=== PATIENT | female | born 1935 | race Caucasian/White ===

== ENCOUNTER 2019-01-29 20:03 | Observation (INO) ==
--- NOTE | 2019-01-29 20:13 | Emergency Department Note ---
Disposition Clinical Impression: Dizziness, Cavitating mass of lung Cerebrovascular accident Qualifiers: CVA mechanism: unspecified Qualified Code(s): I63.9 - Cerebral infarction, unspecified Disposition: Admitted As Inpatient Condition: Fair Time of Disposition: 01:00 General Adult HPI - General Stated complaint: Dehydration Time Seen by Provider: 01/29/19 20:11 - Related Data Home Medications Medication Instructions Recorded Confirmed Diltiazem CD (24hr) [Cardizem CD] 180 mg PO DAILY 01/29/19 01/29/19 Mirtazapine [Remeron] 45 mg PO HS 01/29/19 01/29/19 Simvastatin [Zocor] 10 mg PO DAILY 01/29/19 01/29/19 Allergies Allergy/AdvReac Type Severity Reaction Status Date / Time aspirin [ASA] AdvReac Gastrointestinal Verified 10/20/18 13:13 Upset Past Medical History - Past Medical History Medical history: Reports: hyperlipidemia, hypertension - Social History Smoking Status: Current every day smoker Smokeless Tobacco Status: No Alcohol use: Reports: none Drug use: Reports: none Course Vital Signs Temperature 98.2 F 01/29/19 20:10 Pulse Rate 78 01/29/19 20:10 Respiratory Rate 14 01/29/19 20:10 Blood Pressure 140/69 01/29/19 20:10 O2 Sat by Pulse Oximetry 96 01/29/19 20:10 Temperature 98.2 F 01/29/19 20:10 Pulse Rate 80 01/30/19 00:49 Respiratory Rate 16 01/30/19 00:27 Blood Pressure 135/73 01/30/19 00:49 O2 Sat by Pulse Oximetry 96 01/30/19 00:27 Oxygen Delivery Oxygen Delivery Room Air Medical Decision Making - Lab Data Result diagrams: 01/29/19 21:28 01/29/19 21:28 Lab Results 01/29/19 01/29/19 01/29/19 Range/Units 21:15 21:28 21:28 WBC 13.3 H (4.3-11.1) K/mcL RBC 4.50 (3.82-4.97) M/mcL Hgb 13.5 (11.5-15.4) g/dL Hct 42.1 (35.3-44.9) % MCV 93.6 (83.0-100.0) fL MCH 30.0 (28.0-33.3) pg MCHC 32.1 (31.6-35.5) g/dL RDW 13.2 (11.5-14.5) % Plt Count 269 (140-400) K/mcL MPV 10.0 (9.4-12.4) fL Immature Gran % 0.6 (0-4) % Seg Neutrophils % 81.9 % Lymphocytes % 9.4 % Monocytes % 6.2 % Eosinophils % 1.4 % Basophils % 0.5 % Neutrophils # 10.9 H (1.6-8.9) K/mcL Lymphocytes # 1.3 (0.6-4.6) K/mcL Monocytes # 0.8 (0.0-1.3) K/mcL Eosinophils # 0.2 (0.0-0.6) K/mcL Basophils # 0.1 (0.0-0.2) K/mcL Sodium 142 (136-145) mEq/L Potassium 3.9 (3.5-5.1) mEq/L Chloride 106 (98-107) mEq/L Carbon Dioxide 24 (23-29) mEq/L BUN 13 (8-23) mg/dL Creatinine 0.52 L (0.60-1.20) mg/dL Est GFR ( Amer) > 60 (> 60) Est GFR (Non-Af Amer) > 60 (> 60) BUN/Creatinine Ratio 25 (6-26) Glucose 115 H (70-105) mg/dL Calculated Osmolality 295 (280-300) Calcium 9.2 (8.6-10.3) mg/dL Total Bilirubin 0.2 L (0.3-1.0) mg/dL AST 17 (13-39) Units/L ALT 9 (7-52) Units/L Alkaline Phosphatase 71 (34-104) Units/L Troponin I < 0.03 (< 0.04) ng/mL Serum Total Protein 6.7 (6.4-8.9) g/dL Albumin 4.2 (3.5-5.7) g/dL Globulin 2.5 (2.4-3.5) g/dL Albumin/Globulin Ratio 1.7 (1.1-2.2) Urine Color Yellow (Yellow) Urine Clarity Clear (Clear) Urine pH 7.0 (5.0-8.0) pH Units Ur Specific [place] 1.010 (1.010-1.025) Urine Protein Negative (Neg-Trace) mg/dL Urine Glucose (UA) Normal (Normal) mg/dL Urine Ketones Negative (Negative) mg/dL Urine Blood Negative (Negative) Urine Nitrite Negative (Negative) Urine Bilirubin Negative (Negative) Urine Urobilinogen Normal (Normal) mg/dL Ur Leukocyte Esterase Negative (Negative) Ur Culture Indicated? NO (NO) Attestation Statement - Attestation Attestation: I saw and evaluated the patient and and reviewed the resident's note/PA note/[employer]LL[employer] STAY FUSER TENDER note, and I agree with the findings and plan. I personally supervised and was present for the nascimento/critical portions of any procedures. The medical decision- making was reviewed with the WINCHER/PA/Advanced Practice Nurse/Resident Physician. I agree with the documented findings, disposition and treatment plan as described except to the extent set forth below. I did see the patient immediately upon arrival and also spoke with the paramedics and she presents from home where she lives alone with complaint of vertiginous dizziness which has been going on for several weeks and she has been worsening. She has been here in the past I did review the previous record. She denies any numbness or weakness of the extremities except that she does have 2 weeks of numbness of both feet. She denies any slurred speech, facial droop or confusion. No pain in the head, neck, chest, abdomen or back. No vomiting or diarrhea. No blood in the urine or stool. Social history: Smoker, no a lcohol or drugs
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
[2019-01-29 21:24] LABS: Bilirubin,Urine Negative (Negative); Blood,Urine Negative (Negative); Clarity,Urine Clear (Clear); Color,Urine Yellow (Yellow); Glucose,Urine (UA) Normal (Normal); Ketones,Urine Negative (Negative); Leukocyte Esterase,Urine Negative (Negative); Nitrite,Urine Negative (Negative); Protein,Urine Negative (Neg-Trace); Urobilinogen,Urine Normal (Normal)
[2019-01-29 21:38] LABS: Basophils # 0.1 K/mcL (0.0-0.2); Basophils % 0.5 %; Eosinophils # 0.2 K/mcL (0.0-0.6); Eosinophils % 1.4 %; Hematocrit 42.1 % (35.3-44.9); Hemoglobin 13.5 g/dL (11.5-15.4); Immature Granulocytes % 0.6 % (0-4); Lymphocytes # 1.3 K/mcL (0.6-4.6); Lymphocytes % 9.4 %; Mean Corpuscular HGB Conc 32.1 g/dL (31.6-35.5); Mean Corpuscular Volume 93.6 fL (83.0-100.0); Monocytes # 0.8 K/mcL (0.0-1.3); Monocytes % 6.2 %; Neutrophils # 10.9 K/mcL (1.6-8.9); Platelet Count 269 K/mcL (140-400); Red Cell Distribution Width 13.2 % (11.5-14.5); Segmented Neutrophils % 81.9 %; White Blood Count 13.3 K/mcL (4.3-11.1)
[2019-01-29 22:00] LABS: Alanine Aminotransferase 9 Units/L (7-52); Albumin 4.2 g/dL (3.5-5.7); Albumin/Globulin Ratio 1.7 (1.1-2.2); Alkaline Phosphatase 71 Units/L (34-104); Aspartate Amino Transferase 17 Units/L (13-39); BUN/Creatinine Ratio 25 (6-26); Bilirubin,Total 0.2 mg/dL (0.3-1.0); Blood Urea Nitrogen 13 mg/dL (8-23); Calcium 9.2 mg/dL (8.6-10.3); Carbon Dioxide 24 mEq/L (23-29); Chloride 106 mEq/L (98-107); Globulin 2.5 g/dL (2.4-3.5); Glucose 115 mg/dL (70-105); Osmolality,Calculated 295 (280-300); Potassium 3.9 mEq/L (3.5-5.1); Sodium 142 mEq/L (136-145); Total Protein 6.7 g/dL (6.4-8.9); Troponin I < 0.03 ng/mL (< 0.04); eGFR For African Americans > 60 (> 60); eGFR For Non-African Americans > 60 (> 60)
[2019-01-29] MEDS ORDERED: Isovue-370 500 ML BOTTLE IVP ONE (22:22)
--- NOTE | 2019-01-30 00:41 | Internal Med History&Physical ---
<Kayla James L - Last Filed: 01/30/19 05:06> Date of Encounter: 01/30/19 Time of Encounter: 12:50 Internal Medicine - H&P: HPI Chief complaint: dizziness History of present illness: Ms. Huang is a 83 year old female with pmhx of HTN, and HLD, presents with c/o 2 month history of intermittent dizziness. Patient states she has been getting dizzy and lightheaded daily in the mornings shortly after she takes her blood pressure medications. Patient states she has had recent unintended weight loss of close to 50 pounds and voices her concerns of current BP medication dosage. Patient states although dizziness occurs after morning medications she continues to take her blood pressure medications as prescribed. The dizziness and lightheadedness has been worsening in the past couple of weeks. The dizziness occurs while seated and standing but is not associated with chest pain, palpitations, diaphoresis, blurred vision or falls. Patient denies any recent sick contacts and states this has not happened before. Patient admits to recent decreased hearing and pain in her left ear and numbness and tingling in her feet b/l that began within the last 2 months. Yesterday patient was seated and got up to get her phone. Upon standing she became very dizzy and was unable to continue walking she immediately had to sit down. she eventually was able to get to the phone to call her brother to come over. On her brothers arrival to her house they called EMS as her symptoms had not resolved. Patient also admits to decreased appetite with poor oral intake recently. Past Med Surg Social Fam HX - Past Medical History Medical history: hyperlipidemia, hypertension, osteoporosis Psychiatric history: no psych history - Past Surgical History Surgical History: orthopedic, other (metal palte in L distal radius and R second DIP) - Social History Smoking Status: Current every day smoker Smokeless Tobacco Status: No Alcohol use: none Drug use: none Internal Medicine - H&P: Meds Diltiazem CD (24hr) [Cardizem CD] 180 mg PO DAILY 01/29/19 [History] Mirtazapine [Remeron] 45 mg PO HS 01/29/19 [History] Simvastatin [Zocor] 10 mg PO DAILY 01/29/19 [History] Allergy/AdvReac Type Severity Reaction Status Date / Time aspirin [ASA] AdvReac Gastrointestinal Verified 10/20/18 13:13 Upset All Systems PM: A 10-system review of systems was performed and is negative for pertinent findings except as documented above in the HPI. Review of systems: Constitutional: Denies Fever, Chills, Headache, Respiratory: Denies Shortness of breath, hemoptysis, Dyspnea at rest, or activity admits to Chronic cough Cardiovascular: Denies Chest pain, Syncope, Peripheral edema , palpitations Gastrointestinal: Denies hematochezia, Abdominal pain, nausea, vomiting Genitourinary: Denies Painful urination, hematuria, urinary retention Endocrine: admits to unintentional Significant weight changes Skin: Denies rashes, or unexplained bruising - Constitutional Vitals: Temp Pulse Resp BP Pulse Ox 98.2 F 88 16 125/64 96 01/29/19 20:10 01/30/19 00:27 01/30/19 00:27 01/30/19 00:27 01/30/19 00:27 Exam: Gen: alert/oriented, no acute distress. speaks clearly without signs of dysarthria. Head: atraumatic, normocephalic. ENT: EOMI, lateral nystagmus with R gaze, JOSELUIS, no oropharyngeal erythema, mucous membranes moist, Neck: No thyromegaly appreciated. Neck supple no cervical lymphadenopathy. paraspinal cervical muscle tension Resp: pectus excavatum, decreased breath sounds throughout, mild rhonchi in RLL,no wheezing, or rhales. CV: RRR, Normal S1 and S2. No murmur, gallops, or rubs. GI/Abdominal exam: bowel sounds throughout, soft, non-tender, non- distended; no hepatosplenomegaly Skin: intact; no rashes, lesions, or bruising. Ext: No cyanosis or edema. thoracic scoliosis, with mild tenderness of spinous process in thoracic vertebrase, pulses +2/4 bilaterally UE and LE. Neuro: mild lower left sided facial droop, CN II-XII intact, with notable hearing loss in L ear, sensation intact in UE b/l. decreased sensation on dorsal surface of L foot, normal sensation of R LE; strength 5/5 in LE b/l, 3/5 L UE and 5/5 R UE; DTR +2/4 UE and LE; cooperative with exam. Internal Med - H&P Results - Labs CBC & Chem 7: 01/29/19 21:28 01/29/19 21:28 Labs: Short CBC 01/29/19 Range/Units 21:28 WBC 13.3 H (4.3-11.1) K/mcL Hgb 13.5 (11.5-15.4) g/dL Hct 42.1 (35.3-44.9) % Plt Count 269 (140-400) K/mcL Neutrophils # 10.9 H (1.6-8.9) K/mcL BMP 01/29/19 21:28 Sodium 142 Potassium 3.9 Chloride 106 Carbon Dioxide 24 BUN 13 Creatinine 0.52 L Glucose 115 H Calcium 9.2 Cardiac Enzymes 01/29/19 Range/Units 21:28 Troponin I < 0.03 (< 0.04) ng/mL Liver Function 01/29/19 Range/Units 21:28 Total Bilirubin 0.2 L (0.3-1.0) mg/dL AST 17 (13-39) Units/L ALT 9 (7-52) Units/L Alkaline Phosphatase 71 (34-104) Units/L Albumin 4.2 (3.5-5.7) g/dL Urine 01/29/19 Range/Units 21:15 Urine Color Yellow (Yellow) Urine Clarity Clear (Clear) Urine pH 7.0 (5.0-8.0) pH Units Ur Specific [place] 1.010 (1.010-1.025) Urine Protein Negative (Neg-Trace) mg/dL Urine Glucose (UA) Normal (Normal) mg/dL - Impressions ITS Impressions Chest X-Ray 01/29/19 20:27 IMPRESSION: Suspicious nodular opacity at the left lung base. Further evaluation with chest CT is recommended at this time. D/ / Hardik Ortiz MD / Hardik Ortiz MD Interpreting Provider: Hardik Ortiz MD Head CT 01/29/19 20:27 IMPRESSION: No acute intracranial abnormality. D/ / Lawrence Thorpe MD / Lawrence Thorpe MD Interpreting Provider: Lawrence Thorpe MD Chest CT 01/29/19 22:22 IMPRESSION: Single large or 2 adjacent cavitary nodule in the left lower lobe similar in appearance compared to the prior CT abdomen and pelvis. Infectious, inflammatory, and neoplastic etiologies are all considered. If indicated, a PET-CT should be considered for complete characterization. No enlarged mediastinal lymph nodes by size criteria. Emphysematous change. D/ / Sudeep Zamora / Sudeep Zamora Interpreting Provider: Sudeep Zamora - Assessment and Plan (1) Dizziness Current Visit: Yes Status: Acute Assessment and plan: Patient is a 83-year-old female with past medical history of hypertension and hyperlipidemia. Patient presents with increased symptoms of dizziness worsening in the past couple weeks. Patient has admitted to decreased appetite, unilateral pain and hearing loss of left ear, numbness and tingling in her feet bilaterally. On presentation in the ED patient had CT was negative for acute intracranial process. Due to clinical presentation and physical exam concerns for Dizziness secondary to CVA versus BPPV versus Meniere's versus orthostatic h ypotension. Plan; - we will obtain MRI in a.m. for stroke evaluation. Patient does have hardware in her left arm and right finger evaluate if she is a candidate for MRI. If patient is not a candidate for MRI obtained CTA of brain. - Carotid duplex - Echo - Telemetry, continuous pulse ox - Continue statin (2) Orthostatic hypotension Current Visit: Yes Status: Acute Assessment and plan: Due to concerns for orthostatic hypotension, orthostatic blood pressures were repeated. Orthostatic hypotension is diagnosed when, within 2-5 minutes of quiet standing (after a 5 minute period of supine rest), one or both of the following is present: at least 20 mmHg fall in systolic pressure, or at least 10 mmHg fall and diastolic pressure. Repeat orthostatic blood pressures in this patient: Lying down 135/73 Sitting 138/80 standing 143/77 Plan: - Patient did not have a 10 mm fall in systolic or diastolic pressure with the change in position. - There is still currently concerns for dehydration due to poor oral intake. She is receiving 1 L of normal saline - We will continue to monitor. (3) Cavitating mass of lung Current Visit: Yes Status: Acute Assessment and plan: Patient has a long-standing history of cigarette smoking and recent unintended weight loss. Recent Chest x-ray shows: Suspicious nodular opacity at the left lung base. Further evaluation with chest CT is recommended at this time. Patient did receive a chest CT which showed: cavitary nodule in the left lower lobe, Infectious, inflammatory, and neoplastic etiologies are all considered. If indicated, a PET-CT should be considered for complete characterization. Plan; - We will consult pulmonology for further recommendations (4) Leukocytosis Current Visit: Yes Status: Acute Assessment and plan: Currently patient has neutrophilic leukocytosis, etiology unknown. Patient has been afebrile and arrival. Patient currently denies recent sickness or sick contacts. Plan: - We will continue to monitor for any signs of infection. Qualifiers: Qualified Code(s): D72.829 - Elevated white blood cell count, unspecified (5) Hypertension Current Visit: Yes Status: Acute Assessment and plan: As patient is not presenting with acute signs of stroke we will continue current antihypertensives. Plan: - Cardizem CD 180 mg. Qualifiers: Qualified Code(s): I10 - Essential (primary) hypertension (6) DVT prophylaxis Current Visit: Yes Status: Acute Assessment and plan: SCD - Time Spent With Patient Total time spent is greater than 50% in coordination of care (as documented) at patient's floor/unit and/or counseling patient: <Quinton Medina - Last Filed: 01/30/19 07:00> Date of Encounter: 01/30/19 Internal Medicine - H&P: HPI History of present illness: Ms. Huang is a 83 year old female All Systems PM: A 10-system review of systems was performed and is negative for pertinent findings except as documented above in the HPI. - Constitutional Vitals: Temp Pulse Resp BP Pulse Ox 98.2 F 80 16 135/73 96 01/29/19 20:10 01/30/19 00:49 01/30/19 00:27 01/30/19 00:49 01/30/19 00:27 Internal Med - H&P Results - Labs CBC & Chem 7: 01/30/19 04:01 01/30/19 04:01 Labs: Short CBC 01/29/19 Range/Units 21:28 WBC 13.3 H (4.3-11.1) K/mcL Hgb 13.5 (11.5-15.4) g/dL Hct 42.1 (35.3-44.9) % Plt Count 269 (140-400) K/mcL Neutrophils # 10.9 H (1.6-8.9) K/mcL BMP 01/29/19 21:28 Sodium 142 Potassium 3.9 Chloride 106 Carbon Dioxide 24 BUN 13 Creatinine 0.52 L Glucose 115 H Calcium 9.2 Cardiac Enzymes 01/29/19 Range/Units 21:28 Troponin I < 0.03 (< 0.04) ng/mL Liver Function 01/29/19 Range/Units 21:28 Total Bilirubin 0.2 L (0.3-1.0) mg/dL AST 17 (13-39) Units/L ALT 9 (7-52) Units/L Alkaline Phosphatase 71 (34-104) Units/L Albumin 4.2 (3.5-5.7) g/dL Urine 01/29/19 Range/Units 21:15 Urine Color Yellow (Yellow) Urine Clarity Clear (Clear) Urine pH 7.0 (5.0-8.0) pH Units Ur Specific [place] 1.010 (1.010-1.025) Urine Protein Negative (Neg-Trace) mg/dL Urine Glucose (UA) Normal (Normal) mg/dL - Impressions ITS Impressions Chest X-Ray 01/29/19 20:27 IMPRESSION: Suspicious nodular opacity at the left lung base. Further evaluation with chest CT is recommended at this time. D/ / Hardik Ortiz MD / Hardik Ortiz MD Interpreting Provider: Hardik Ortiz MD Head CT 01/29/19 20:27 IMPRESSION: No acute intracranial abnormality. D/ / Lawrence Thorpe MD / Lawrence Thorpe MD Interpreting Provider: Lawrence Thorpe MD Chest CT 01/29/19 22:22 IMPRESSION: Single large or 2 adjacent cavitary nodule in the left lower lobe similar in appearance compared to the prior CT abdomen and pelvis. Infectious, inflammatory, and neoplastic etiologies are all considered. If indicated, a PET-CT should be considered for complete characterization. No enlarged mediastinal lymph nodes by size criteria. Emphysematous change. D/ / Sudeep Zamora / Sudeep Zamora Interpreting Provider: Sudeep Zamora - Time Spent With Patient Total time spent is greater than 50% in coordination of care (as documented) at patient's floor/unit and/or counseling patient: - Attending Attestation I performed a history and physical examination of the patient and discussed their management with the resident. I reviewed the resident's note and agree with the documented plan of care. Patient is a 82-year-old female with a past medical history of hypertension, hyperlipidemia, tobacco use and history of GI bleed who presented to the ED due to concerns for dizziness and dehydration. She reports of a 1-2 month history of symptoms of dizziness typically occurring when rising but has been also occurring while seated as well. Denies any other triggers such as head turning or tinnitus. She does report progressive ear loss involving the left ear. Also reports diminished sensation bilaterally in both feet. Today she had a significant episode of her vertigo associated with nausea which was worse than usual and became concerned. Was noted to have orthostatic hypotension based on orthostatic vitals obtained by EMS. On initial assessment in the ED, mild left- sided facial drooping was noted that the patient was unaware of. Last known well is greater than a week ago. She denies any preceding chest pain, palpitations, or dyspnea prior to the dizziness. Denies recent illness, med changes, fevers, chills, vision changes, abdominal pain, vomiting, diarrhea, constipation, weakness, or edema. Due to concern for CVA, CT scan of the head was performed which showed no acute intracranial abnormality. On physical examination patient was neurologically intact aside from subtle left-sided facial droop. Laboratory workup notable for a mild leukocytosis of 13.3. UA was negative. Remainder of her labs are normal. Due to abnormal findings on chest x-ray a CT scan was obtained which showed a large cavitary nodule in LLL similar to prior appearance (infectious, inflammatory, or malignant). Patient does have a chronic smoking history stating that she has been smoking since she was 10 years old she also recently reported a 70 pound unintentional weight loss over the past 18 months. Will admit patient for stroke workup. Echocardiogram. Ideally, would like to obtain a MRI of the brain. Patient does report some hardware in her left distal upper extremity and in the right hand; unclear if it is MRI compatible. If not, consider CTA of the head and neck for further evaluation of a possible posterior circulatory stroke. Consider neurology consult. We will obtain a pulmonary consult for further evaluation of patients left lower lobe lesion given her history and risk factors.
[2019-01-30] MEDS ORDERED: Naloxone 0.4 MG/ML INJ IVP PRN (01:50)
[2019-01-30] MEDS: 0.9 % Sodium Chloride 1,000 ML IVC SCH ×2 (03:28→12:38)
[2019-01-30] MEDS ORDERED: Aspirin Enteric Coated 81 MG Tablet PO SCH (05:00)
[2019-01-30 05:27] LABS: Basophils # 0.1 K/mcL (0.0-0.2); Basophils % 0.6 %; Eosinophils # 0.1 K/mcL (0.0-0.6); Eosinophils % 0.7 %; Hemoglobin 12.8 g/dL (11.5-15.4); Immature Granulocytes % 0.3 % (0-4); Lymphocytes # 1.4 K/mcL (0.6-4.6); Lymphocytes % 14.2 %; Mean Corpuscular Volume 93.9 fL (83.0-100.0); Mean Platelet Volume 10.4 fL (9.4-12.4); Monocytes # 0.8 K/mcL (0.0-1.3); Monocytes % 7.6 %; Neutrophils # 7.6 K/mcL (1.6-8.9); Platelet Count 252 K/mcL (140-400); Red Blood Count 4.26 M/mcL (3.82-4.97); Red Cell Distribution Width 13.2 % (11.5-14.5); Segmented Neutrophils % 76.6 %; White Blood Count 9.9 K/mcL (4.3-11.1)
[2019-01-30 05:49] LABS: BUN/Creatinine Ratio 19 (6-26); Blood Urea Nitrogen 8 mg/dL (8-23); Calcium 9.1 mg/dL (8.6-10.3); Carbon Dioxide 26 mEq/L (23-29); Chloride 105 mEq/L (98-107); Chol/HDL Ratio 2.2 (0-4.9); Cholesterol 132 mg/dL (< 200); Glucose 100 mg/dL (70-105); HDL Cholesterol 59 mg/dL (40-59); LDL Cholesterol,Calculated 64 mg/dL (0-99); Magnesium 1.9 mg/dL (1.6-2.6); Osmolality,Calculated 290 (280-300); Potassium 3.6 mEq/L (3.5-5.1); Sodium 141 mEq/L (136-145); Triglycerides 43 mg/dL (< 150); eGFR For African Americans > 60 (> 60); eGFR For Non-African Americans > 60 (> 60)
[2019-01-30 05:53] LABS: Estimated Average Glucose 123 mg/dl
--- NOTE | 2019-01-30 07:22 | Pulmonology Consult Note ---
Date of Encounter: 01/30/19 Time of Encounter: 07:21 Assessment and Plan (1) Cavitary lesion of lung Current Visit: Yes Status: Acute I reviewed her CT scan there is evidence of a stable left lower lobe cavitary lesion there is a very high possibility this is a primary lung malignancy such as adenocarcinoma and if the case metastatic disease including metastases to the brain is quite possible. I doubt infectious etiology but this is also in the differential. She has no risk factors or clinical symptoms of tuberculosis (outside of weight loss). Recommend further evaluation of her neurological complaints acutely such as brain MRI and we can follow-up in the outpatient setting to arrange for PET/CT and likely CT-guided biopsy or trans-bronchial biopsy with the navigational bronchoscopy I favor the latter because of her risk factors for pneumothorax with trans-thoracic needle aspiration CT-guided biopsy. This would also for to separate to take cultures and brushings from the area. Patient expressed understanding and agreement with plan Please have patient follow-up in pulmonary clinic in 1-2 weeks at the time of discharge (2) Dizziness Current Visit: Yes Status: Acute Agree with MRI consider neurology consultation defer rest of management to primary team (3) Emphysema of lung Current Visit: Yes Status: Acute She will likely benefit from addition of a scheduled combination inhaler such as Symbicort this can be started at 160/4.52 puffs twice a day. Would have duo nebs available every 6-8 hours as needed Outpatient PFTs Qualifiers: Emphysema type: centrilobular Qualified Code(s): J43.2 - Centrilobular emphysema (4) Tobacco abuse Current Visit: Yes Status: Acute Tobacco cessation counseling given Pulmonary will sign off thank you very much for this consultation Do not hesitate to call me with any questions or concerns Chandan Houston [phone] History of Present Illness Consult date: 01/30/19 Requesting physician: Christa Fisher Reason for consult: abnormal CXR/CT Chief complaint: Dizziness History of present illness: This is an 83-year-old woman past with a history of hypertension dyslipidemia she presented with intermittent dizziness states that she is getting very dizzy and lightheaded after she takes her blood pressure medications. There is concern on admission for CVA and a CT of the head formed which was without acute abnormality. Chest x-ray performed which is followed by CT scan of the chest was notable for a cavitary nodule in the left lower lobe which pulmonary was consulted. Patient is a long-time heavy smoker of a pack to a pack and a half a day starting in the early adolescence. 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 She has had significant weight loss of at least 20 pounds over last few months she has poor appetite and has difficulty tasting food. She denies any kavon hemoptysis she denies any significant shortness of breath with her activities of daily living and however she does have a daily cough productive of phlegm. She denies any infectious symptoms and denies any history of travel outside the [place] or being around anybody with tuberculosis no other high risk factors such as IV drug abuse or exposure to exotic animals Past Med Surg Social Fam HX - Past Medical History Medical history: hyperlipidemia, hypertension, osteoporosis Psychiatric history: no psych history - Past Surgical History Surgical History: orthopedic, other (metal palte in L distal radius and R second DIP) - Social History Smoking Status: Current every day smoker Smokeless Tobacco Status: No Alcohol use: none Drug use: none Medications and Allergies Diltiazem CD (24hr) [Cardizem CD] 180 mg PO DAILY 01/29/19 [History] Mirtazapine [Remeron] 45 mg PO HS 01/29/19 [History] Simvastatin [Zocor] 10 mg PO DAILY 01/29/19 [History] Allergy/AdvReac Type Severity Reaction Status Date / Time aspirin [ASA] AdvReac Gastrointestinal Verified 10/20/18 13:13 Upset All Systems: The remainder of the systems were reviewed and are negative Physical Examination Vital Signs: Vital Signs, Last 4 Hours Temp Pulse Resp BP Pulse Ox 01/30/19 05:37 97.9 F 81 16 132/68 93 General appearance: no acute distress, other (Frail appearing) Eyes: nonicteric ENT: oropharynx moist Neck: no lymphadenopathy Effort: normal Auscultation: bilateral: clear Cardiovascular: regular rate and rhythm Gastrointestinal: normoactive bowel sounds, soft, non-tender Integumentary: normal Extremities: no cyanosis, no edema, no clubbing Musculoskeletal: no deformities normal mental status, non-focal exam mood appropriate Results - Laboratory Findings CBC and BMP: 01/30/19 04:01 01/30/19 04:01 Abnormal lab findings: Abnormal lab results WBC 13.3 K/mcL (4.3-11.1) H 01/29/19 21:28 Neutrophils # 10.9 K/mcL (1.6-8.9) H 01/29/19 21:28 Creatinine 0.43 mg/dL (0.60-1.20) L 01/30/19 04:01 Glucose 115 mg/dL (70-105) H 01/29/19 21:28 Hemoglobin A1c 5.9 % (-5.6) H 01/30/19 04:01 Total Bilirubin 0.2 mg/dL (0.3-1.0) L 01/29/19 21:28 - Diagnostic Findings Chest x-ray: report reviewed, image reviewed CT scan - chest: report reviewed, image reviewed - Clinical Findings Intake & Output: Intake & Output 01/29/19 01/29/19 01/30/19 15:59 23:59 07:59 Weight 48.534 kg 45.1 kg Consult Discharge Plan - Plan Referrals: Heron Hercules MD [Primary Care Provider] -
[2019-01-30] MEDS ORDERED: Acetaminophen/Aspirin/Caffeine TABLET PO PRN (08:51)
[2019-01-30] MEDS ORDERED: Diltiazem CD (24hr) 180 MG CAPSULE PO SCH (09:00)
--- NOTE | 2019-01-30 12:01 | Event Note ---
Date of Encounter: 01/30/19 Time of Encounter: 10:15 H&P reviewed. 83-year-old female with history of hypertension, hyperlipidemia, tobacco use, who was admitted for intermittent dizziness for the last 2 months. Also had unintentional weight loss over the 9-10 months. She was found to have one large or 2 adjacent cavitary nodules in the left lower lobe concerning for neoplastic processes. Given her symptoms of dizziness as well as a finding on CT that may be compatible with malignancy, will proceed with MRI brain to rule out CVA as well as metastatic disease.
[2019-01-30 12:20] VITALS: BP 126/55
--- NOTE | 2019-01-30 15:42 | Discharge Summary ---
- NOTES TO OUTPATIENT PROVIDER Notes to Outpatient Provider: Follow up with pulmonology as outpatient Date of Encounter: 01/30/19 Time of Encounter: 14:00 - Discharge Diagnosis (1) Cavitary lesion of lung Priority: Primary Status: Acute (2) Dizziness Priority: Secondary Status: Acute (3) Emphysema of lung Priority: Secondary Status: Acute Qualifiers: Emphysema type: centrilobular Qualified Code(s): J43.2 - Centrilobular emphysema (4) Hypertension Priority: Secondary Status: Acute Qualifiers: Qualified Code(s): I10 - Essential (primary) hypertension Hospital course: Ms. Huang is a 83 year old female with history of hypertension, hyperlipidemia, tobacco use, who was admitted for intermittent dizziness for the last 2 months. Also had unintentional weight loss over the 9-10 months. She was found to have one large or 2 adjacent cavitary nodules in the left lower lobe concerning for neoplastic processes. Given her symptoms of dizziness as well as a finding on CT that may be compatible with malignancy, she was admitted to have MRI performed which was negative for infarct or any suspicious lesion consistent with metastases. She will be discharged home in stable condition on 01/30 with pulmonology follow up outpatient for PET/CT and likely CT-guided bx. Patient was also given a trial of meclizine. I had a [id number] encounter with the patient greater than 8 hours apart from the time of the admission. Discharge discussed with: patient, family, nurse - Time Spent with Patient Total time spent providing and/or coordinating discharge services: 27 mins - Discharge Medications Prescriptions: New Meclizine [Antivert] 12.5 mg PO TID PRN #30 tablet PRN Reason: Dizziness Continued Mirtazapine [Remeron] 45 mg PO HS Diltiazem CD (24hr) [Cardizem CD] 180 mg PO DAILY Simvastatin [Zocor] 10 mg PO DAILY Home Medications: Diltiazem CD (24hr) [Cardizem CD] 180 mg PO DAILY 01/29/19 [History] Mirtazapine [Remeron] 45 mg PO HS 01/29/19 [History] Simvastatin [Zocor] 10 mg PO DAILY 01/29/19 [History] Meclizine [Antivert] 12.5 mg PO TID PRN #30 tablet 01/30/19 [Rx] Allergies/Adverse Reactions: Allergy/AdvReac Type Severity Reaction Status Date / Time aspirin [ASA] AdvReac Gastrointestinal Verified 10/20/18 13:13 Upset Date of admission: 01/30/19 00:32 Primary care physician: Heron Hercules MD Consults: 01/30/19 02:06 Consult to Occupational Therapy [CONS] Routine Comment: Evaluate, develop and implement POC Reason for Consult: weakness Does patient have active BEDREST order?: No Is patient medically & hemodynamically stable?: Yes Patient assessed for mobility or mobilized this visit?: No Consult to Physical Therapy [CONS] Routine Comment: Evaluate, develop and implement POC Reason for Consult: weakness Does patient have active BEDREST order?: No Is patient medically & hemodynamically stable?: Yes Patient assessed for mobility or mobilized this visit?: No 01/30/19 06:50 Consult to Pulmonology [CONS] Routine Consulting Provider: [facility] [place] Reason for Consult: Chronic smoker with emphysematous changes on cxr, and chest CT concerning for infection or malignancy. Call Completed: No - Constitutional Vitals: Temp Pulse Resp BP Pulse Ox 98.1 F 90 15 126/55 94 01/30/19 12:19 01/30/19 12:19 01/30/19 12:19 01/30/19 12:19 01/30/19 12:19 Exam: General: Alert and oriented, not in acute distress. Cardiovascular:Normal S1 & S2, No JVD. Pulse regular. Lungs: clear to auscultation, no wheezes/rales Abdomen:Soft, non-tender, no rigidity. Extremities:No deformity or swelling Neurological: CN II-XII intact, power and sensation fully intact in all 4 limbs. No cerebellar signs, pronator drift -ve, Babinski downgoing bilaterally - Patient Status Disposition: Home, Self-Care Condition: Fair Functional capacity at discharge: independent ambulation Overall status at discharge: patient is progressing back to baseline - Discharge Instructions Instructions: Chronic Obstructive Pulmonary Disease (DC), Chronic Hypertension (DC) Follow Up With: Heron Hercules MD [Primary Care Provider] - Alli Houston MD [Partnered Physician] - - Diet and Activity Activity: resume usual activities as tolerated Diet: regular diet
[2019-01-30] MEDS ORDERED: Mirtazapine 15 MG TABLET PO SCH (21:00)
--- NOTE | 2019-02-04 11:03 | Electrocardiograph Report ---
[facility] Test Date: 2019-01-29 Pat Name: Mirta Reina Department: EXAM21 Room: 3B52 Gender: F Event Set Up Specialist: : [id number] Requested By: Arya Guerrero Order Number: [id number] Reading MD: Nigel Truong Measurements Intervals [place] Rate: 72 P: 90 CO: 168 QRS: 48 QRSD: 84 T: 76 QT: 383 QTc: 420 Interpretive Statements Sinus rhythm Minimal ST elevation, inferior leads Electronically Signed On 02-04-2019 11:02:15 EDT by Nigel Truong
== END 2019-01-30 16:10 | disposition home or self-care (01) ==
LOC: 3BNU 20:03 → EMEROOARM 20:03 → SUATTDRO 01-30 00:32 → 3BNU 01-30 00:58
PROVIDERS: ADMIT Internal Medicine; ATTEND Internal Medicine

== ENCOUNTER 2020-10-09 11:48 | Observation (INO) ==
[2020-10-09 12:35] LABS: Basophils # 0.1 K/mcL (0.0-0.2); Basophils % 0.3 %; Hematocrit 30.8 % (35.3-44.9); Hemoglobin 9.7 g/dL (11.5-15.4); Immature Granulocytes % 0.6 % (0-4); Lymphocytes # 1.7 K/mcL (0.6-4.6); Mean Corpuscular HGB Conc 31.5 g/dL (31.6-35.5); Mean Corpuscular Hemoglobin 28.1 pg (28.0-33.3); Mean Corpuscular Volume 89.3 fL (83.0-100.0); Mean Platelet Volume 10.4 fL (9.4-12.4); Monocytes # 0.8 K/mcL (0.0-1.3); Monocytes % 4.9 %; Neutrophils # 12.8 K/mcL (1.6-8.9); Platelet Count 284 K/mcL (140-400); Red Blood Count 3.45 M/mcL (3.82-4.97); Red Cell Distribution Width 13.3 % (11.5-14.5); Segmented Neutrophils % 83.2 %; White Blood Count 15.4 K/mcL (4.3-11.1)
[2020-10-09 12:36] LABS: INR 1.1; Prothrombin Time 12.2 Seconds (9.4-12.1)
[2020-10-09 12:39] LABS: Activated Partial Thrombo Time 25.3 Seconds (26.0-36.0)
[2020-10-09] MEDS ORDERED: Isovue-370 500 ML BOTTLE IVP ONE (12:45)
[2020-10-09] MEDS ORDERED: Pantoprazole 40 MG VIAL IVP ONE (12:55)
[2020-10-09 12:59] LABS: Alanine Aminotransferase 6 Units/L (7-52); Albumin 3.9 g/dL (3.5-5.7); Albumin/Globulin Ratio 1.5 (1.1-2.2); Alkaline Phosphatase 52 Units/L (34-104); Aspartate Amino Transferase 13 Units/L (13-39); BUN/Creatinine Ratio 46 (6-26); Bilirubin,Total 0.3 mg/dL (0.3-1.0); Blood Urea Nitrogen 25 mg/dL (8-23); Carbon Dioxide 26 mEq/L (23-29); Chloride 101 mEq/L (98-107); Globulin 2.6 g/dL (2.4-3.5); Glucose 122 mg/dL (70-105); Lipase 16 Units/L (11-82); Osmolality,Calculated 284 (280-300); Potassium 3.8 mEq/L (3.5-5.1); Sodium 134 mEq/L (136-145); Total Protein 6.5 g/dL (6.4-8.9); Troponin I < 0.03 ng/mL (< 0.04); eGFR For African Americans > 60 (> 60); eGFR For Non-African Americans > 60 (> 60)
[2020-10-09] MEDS ORDERED: Ondansetron 4 MG/2 ML VIAL IVP STA (12:59)
[2020-10-09] MEDS: Pantoprazole 40 MG in 0.9 % Sodium Chloride Mini Bag 100 ML IVC SCH ×2 (13:11→18:17)
[2020-10-09 13:35] LABS: Bacteria,Urine Few per hpf (None-Few); Bilirubin,Urine Negative (Negative); Blood,Urine Negative (Negative); Clarity,Urine Clear (Clear); Color,Urine Light-Yellow (Yellow); Glucose,Urine (UA) Normal (Normal); Ketones,Urine 20 mg/dL (Negative); Leukocyte Esterase,Urine Large (Negative); Mucus,Urine Few per lpf (None-Few); Nitrite,Urine Negative (Negative); PH,Urine 6.5 pH Units (5.0-8.0); Protein,Urine Negative (Neg-Trace); Specific Gravity,Urine 1.021 (1.010-1.025); Squamous Epithelial Cell,Urine Moderate per hpf (None-Few); Urobilinogen,Urine Normal (Normal); WBC,Urine 15-30 per hpf (0-3)
[2020-10-09] MEDS ORDERED: cefTRIAXone 1,000 MG in Water for inj. (sterile) 10 ML IVP ONE (15:06)
[2020-10-09 15:45] LABS: Hematocrit 30.8 % (35.3-44.9)
[2020-10-09] MEDS: Acetaminophen 325 MG TABLET PO PRN (16:16)
[2020-10-09] MEDS ORDERED: *HR* Dextrose 50 % in Water (Vial) 50 ML VIAL IVP PRN (16:58)
[2020-10-09] MEDS ORDERED: Melatonin 3 MG TABLET PO PRN (16:58)
[2020-10-09] MEDS ORDERED: D5% in Water 1,000 ML IVC PRN (16:58)
[2020-10-09] MEDS ORDERED: Ondansetron 4 MG/2 ML VIAL IVP PRN (16:58)
[2020-10-09] MEDS ORDERED: Naloxone 0.4 MG/ML INJ IVP PRN (16:58)
[2020-10-09] MEDS ORDERED: Dextrose Gel 15 GM/37.5 ML TUBE PO PRN ×2 (16:58)
[2020-10-09 17:08] LABS: Adenovirus Not Detected (Not Detect); Bordetella Pertussis Not Detected (Not Detect); Chlamydophila pneumoniae Not Detected (Not Detect); Coronavirus 229E Not Detected (Not Detect); Coronavirus HKU1 Not Detected (Not Detect); Coronavirus NL63 Not Detected (Not Detect); Coronavirus OC43 Not Detected (Not Detect); Human Metapneumovirus Not Detected (Not Detect); Human Rhinovirus/Enterovirus Not Detected (Not Detect); Influenza A Subtype 2009 H1 Not Detected (Not Detect); Influenza B Not Detected (Not Detect); Mycoplasma pneumoniae Not Detected (Not Detect); Parainfluenza Virus 1 Not Detected (Not Detect); Parainfluenza Virus 2 Not Detected (Not Detect); Parainfluenza Virus 3 Not Detected (Not Detect); Parainfluenza Virus 4 Not Detected (Not Detect); Respiratory Syncytial Virus Not Detected (Not Detect); SARS-CoV-2 Not Detected (Not Detect)
[2020-10-09] MEDS: Ringers Solution, Lactated 1,000 ML IVC SCH (17:49)
[2020-10-09 18:15] LABS: Estimated Average Glucose 114 mg/dl; Hemoglobin A1C 5.6 %
[2020-10-09] MEDS: Mirtazapine 15 MG TABLET PO SCH (21:02)
[2020-10-10] MEDS: Pantoprazole 40 MG in 0.9 % Sodium Chloride Mini Bag 100 ML IVC SCH ×5 (00:07→21:20)
[2020-10-10] MEDS: Ringers Solution, Lactated 1,000 ML IVC SCH ×2 (03:58→14:03)
[2020-10-10] MEDS: Acetaminophen 325 MG TABLET PO PRN (03:58)
[2020-10-10 06:08] LABS: Basophils % 0.3 %; Eosinophils % 0.3 %; Hematocrit 22.9 % (35.3-44.9); Hemoglobin 7.4 g/dL (11.5-15.4); Immature Granulocytes % 0.7 % (0-4); Lymphocytes # 1.5 K/mcL (0.6-4.6); Mean Corpuscular HGB Conc 32.3 g/dL (31.6-35.5); Mean Corpuscular Volume 89.8 fL (83.0-100.0); Mean Platelet Volume 10.6 fL (9.4-12.4); Monocytes % 8.9 %; Neutrophils # 8.8 K/mcL (1.6-8.9); Platelet Count 222 K/mcL (140-400); Red Blood Count 2.55 M/mcL (3.82-4.97); Red Cell Distribution Width 13.5 % (11.5-14.5); Segmented Neutrophils % 76.8 %; White Blood Count 11.5 K/mcL (4.3-11.1)
[2020-10-10 06:15] LABS: INR 1.1; Prothrombin Time 12.8 Seconds (9.4-12.1)
[2020-10-10 06:17] LABS: Activated Partial Thrombo Time 24.5 Seconds (26.0-36.0)
[2020-10-10 06:38] LABS: % Iron Saturation 7 % (15-50); Alanine Aminotransferase 4 Units/L (7-52); Albumin 3.2 g/dL (3.5-5.7); Albumin/Globulin Ratio 1.6 (1.1-2.2); Alkaline Phosphatase 39 Units/L (34-104); Aspartate Amino Transferase 11 Units/L (13-39); BUN/Creatinine Ratio 36 (6-26); Bilirubin,Total 0.2 mg/dL (0.3-1.0); Blood Urea Nitrogen 17 mg/dL (8-23); Calcium 8.2 mg/dL (8.6-10.3); Carbon Dioxide 26 mEq/L (23-29); Chloride 107 mEq/L (98-107); Glucose 95 mg/dL (70-105); Iron 19 mcg/dL (50-170); Magnesium 1.7 mg/dL (1.6-2.6); Osmolality,Calculated 289 (280-300); Phosphorous 2.2 mg/dL (2.7-4.5); Potassium 3.5 mEq/L (3.5-5.1); Sodium 139 mEq/L (136-145); Total Protein 5.2 g/dL (6.4-8.9); Transferrin 198 mg/dL (203-362); eGFR For African Americans > 60 (> 60); eGFR For Non-African Americans > 60 (> 60)
[2020-10-10 06:49] LABS: Ferritin 14 ng/mL (10-120)
[2020-10-10 06:55] LABS: Folate 12.6 ng/mL (3.0-16.0)
[2020-10-10] MEDS: cefTRIAXone 1,000 MG in 0.9 % Sodium Chloride Mini Bag 100 ML IVPB SCH (07:42)
[2020-10-10] MEDS ORDERED: Cyanocobalamin (B-12) 1,000 MCG/ML VIAL SQ ONE (08:48)
[2020-10-10 09:33] LABS: Hematocrit 23.5 % (35.3-44.9); Hemoglobin 7.4 g/dL (11.5-15.4)
[2020-10-10] MEDS ORDERED: Lidocaine -MPF 2% 5 ML VIAL SQ ONE (11:40)
[2020-10-10] MEDS ORDERED: *HR* Propofol 200 MG/20 ML VIAL IVP ONE (11:40)
[2020-10-10] MEDS ORDERED: SUMAtriptan 6 MG/0.5 ML SQ ONE (12:16)
[2020-10-10] MEDS ORDERED: Metoclopramide 10 MG/2 ML VIAL IVP ONE (12:16)
[2020-10-10] MEDS ORDERED: 0.9 % Sodium Chloride 250 ML ONE (12:59)
[2020-10-10 21:02] LABS: Hematocrit 27.4 % (35.3-44.9); Hemoglobin 8.8 g/dL (11.5-15.4)
[2020-10-10] MEDS: Mirtazapine 15 MG TABLET PO SCH (21:20)
[2020-10-11] MEDS: Pantoprazole 40 MG in 0.9 % Sodium Chloride Mini Bag 100 ML IVC SCH ×2 (02:56→08:32)
[2020-10-11 03:58] LABS: Basophils # 0.1 K/mcL (0.0-0.2); Basophils % 0.5 %; Eosinophils # 0.1 K/mcL (0.0-0.6); Eosinophils % 0.5 %; Hematocrit 27.9 % (35.3-44.9); Immature Granulocytes % 0.8 % (0-4); Lymphocytes # 1.9 K/mcL (0.6-4.6); Lymphocytes % 14.3 %; Mean Corpuscular HGB Conc 32.3 g/dL (31.6-35.5); Mean Corpuscular Hemoglobin 28.6 pg (28.0-33.3); Mean Corpuscular Volume 88.6 fL (83.0-100.0); Mean Platelet Volume 9.9 fL (9.4-12.4); Monocytes # 1.3 K/mcL (0.0-1.3); Monocytes % 9.8 %; Neutrophils # 9.9 K/mcL (1.6-8.9); Nucleated Red Blood Cells 0.3 /100 WBC (0); Platelet Count 213 K/mcL (140-400); Red Blood Count 3.15 M/mcL (3.82-4.97); Red Cell Distribution Width 13.8 % (11.5-14.5); Segmented Neutrophils % 74.1 %; White Blood Count 13.3 K/mcL (4.3-11.1)
[2020-10-11 04:14] LABS: BUN/Creatinine Ratio 14 (6-26); Blood Urea Nitrogen 7 mg/dL (8-23); Calcium 8.6 mg/dL (8.6-10.3); Carbon Dioxide 27 mEq/L (23-29); Chloride 105 mEq/L (98-107); Glucose 88 mg/dL (70-105); Magnesium 1.8 mg/dL (1.6-2.6); Osmolality,Calculated 287 (280-300); Potassium 3.4 mEq/L (3.5-5.1); Sodium 140 mEq/L (136-145); eGFR For African Americans > 60 (> 60); eGFR For Non-African Americans > 60 (> 60)
[2020-10-11 07:26] VITALS: BP 126/64
[2020-10-11] MEDS: Ringers Solution, Lactated 1,000 ML IVC SCH (08:29)
[2020-10-11] MEDS: cefTRIAXone 1,000 MG in 0.9 % Sodium Chloride Mini Bag 100 ML IVPB SCH (08:31)
[2020-10-11] MEDS ORDERED: Cyanocobalamin (B-12) 1,000 MCG/ML VIAL SQ ONE (08:35)
[2020-10-11] MEDS ORDERED: Pantoprazole 40 MG VIAL IVP SCH (18:00)
== END 2020-10-11 11:41 | disposition home or self-care (01) ==
LOC: EMEROOARM 11:48 → 3BNU 11:48 → SUATTDRO 14:54 → 3BNU 15:27
PROVIDERS: ADMIT Internal Medicine; ATTEND Internal Medicine
PROC: ENDOEBX (2020-10-10 15:00)

== ENCOUNTER 2020-11-04 13:16 | Observation (INO) ==
[2020-11-04] MEDS ORDERED: 0.9 % Sodium Chloride 1,000 ML IVC ONE (14:15)
[2020-11-04 14:47] LABS: Bilirubin,Urine Negative (Negative); Blood,Urine Negative (Negative); Clarity,Urine Clear (Clear); Color,Urine Colorless (Yellow); Glucose,Urine (UA) Normal (Normal); Ketones,Urine Negative (Negative); Leukocyte Esterase,Urine Negative (Negative); Nitrite,Urine Negative (Negative); PH,Urine 6.5 pH Units (5.0-8.0); Protein,Urine Negative (Neg-Trace); Specific Gravity,Urine 1.006 (1.010-1.025); Urobilinogen,Urine Normal (Normal)
[2020-11-04 15:27] LABS: Basophils # 0.1 K/mcL (0.0-0.2); Basophils % 0.5 %; Eosinophils # 0.1 K/mcL (0.0-0.6); Eosinophils % 0.6 %; Hematocrit 28.7 % (35.3-44.9); Hemoglobin 8.7 g/dL (11.5-15.4); Immature Granulocytes % 0.6 % (0-4); Lymphocytes # 1.5 K/mcL (0.6-4.6); Lymphocytes % 14.9 %; Mean Corpuscular HGB Conc 30.3 g/dL (31.6-35.5); Mean Corpuscular Hemoglobin 26.2 pg (28.0-33.3); Mean Corpuscular Volume 86.4 fL (83.0-100.0); Mean Platelet Volume 9.7 fL (9.4-12.4); Monocytes # 1.4 K/mcL (0.0-1.3); Monocytes % 13.6 %; Neutrophils # 7.2 K/mcL (1.6-8.9); Platelet Count 324 K/mcL (140-400); Red Blood Count 3.32 M/mcL (3.82-4.97); Red Cell Distribution Width 14.5 % (11.5-14.5); Segmented Neutrophils % 69.8 %; White Blood Count 10.3 K/mcL (4.3-11.1)
[2020-11-04 15:34] LABS: INR 1.3; Prothrombin Time 14.5 Seconds (9.4-12.1)
[2020-11-04 15:49] LABS: Alanine Aminotransferase 6 Units/L (7-52); Albumin 3.1 g/dL (3.5-5.7); Alkaline Phosphatase 58 Units/L (34-104); Aspartate Amino Transferase 12 Units/L (13-39); BUN/Creatinine Ratio 14 (6-26); Bilirubin,Total 0.4 mg/dL (0.3-1.0); Blood Urea Nitrogen 7 mg/dL (8-23); Calcium 8.8 mg/dL (8.6-10.3); Carbon Dioxide 28 mEq/L (23-29); Chloride 101 mEq/L (98-107); Creatine Kinase 19 Units/L (30-223); Globulin 3.1 g/dL (2.4-3.5); Glucose 111 mg/dL (70-105); Magnesium 1.9 mg/dL (1.6-2.6); Osmolality,Calculated 281 (280-300); Phosphorous 2.7 mg/dL (2.7-4.5); Potassium 3.8 mEq/L (3.5-5.1); Sodium 136 mEq/L (136-145); Total Protein 6.2 g/dL (6.4-8.9); Troponin I < 0.03 ng/mL (< 0.04); eGFR For African Americans > 60 (> 60); eGFR For Non-African Americans > 60 (> 60)
[2020-11-04 16:02] LABS: Thyroid Stimulating Hormone 0.742 mcIU/mL (0.340-5.600)
[2020-11-04] MEDS ORDERED: Melatonin 3 MG TABLET PO PRN (17:57)
[2020-11-04] MEDS ORDERED: Acetaminophen 325 MG TABLET PO PRN (17:57)
[2020-11-04] MEDS ORDERED: Naloxone 0.4 MG/ML INJ IVP PRN (17:57)
[2020-11-04] MEDS ORDERED: Ondansetron 4 MG/2 ML VIAL IVP PRN (17:57)
[2020-11-04] MEDS ORDERED: *HR* Promethazine 25 MG/ML VIAL IM PRN (17:57)
[2020-11-04] MEDS ORDERED: Sennosides/Docusate Sodium TABLET PO PRN (17:59)
[2020-11-04] MEDS: *HR* HYDROcodone/Acet 5/325 mg TABLET PO PRN (18:32)
[2020-11-04] MEDS ORDERED: *HR* Heparin 5,000 UNIT/ML VIAL IVP ONE (23:52)
[2020-11-04] MEDS ORDERED: *HR* Heparin 5,000 UNIT/ML VIAL IVP PRN (23:52)
[2020-11-05] MEDS: *HR* HYDROcodone/Acet 5/325 mg TABLET PO PRN ×4 (00:30→20:59)
[2020-11-05] MEDS: Heparin 25,000UNIT/250ML 1/2NS 25,000 UNIT/250 ML IV.SOLN IVC SCH (00:44)
[2020-11-05 01:05] LABS: Heparin anti-factor XA UFH < 0.04 IU/mL (0.30-0.70)
[2020-11-05 01:06] LABS: INR 1.2; Prothrombin Time 13.8 Seconds (9.4-12.1)
[2020-11-05 01:07] LABS: Basophils % 0.3 %; Eosinophils # 0.2 K/mcL (0.0-0.6); Eosinophils % 2.2 %; Hematocrit 28.8 % (35.3-44.9); Hemoglobin 8.8 g/dL (11.5-15.4); Immature Granulocytes % 0.7 % (0-4); Lymphocytes # 1.3 K/mcL (0.6-4.6); Lymphocytes % 14.4 %; Mean Corpuscular HGB Conc 30.6 g/dL (31.6-35.5); Mean Corpuscular Hemoglobin 26.6 pg (28.0-33.3); Mean Platelet Volume 9.9 fL (9.4-12.4); Monocytes # 1.2 K/mcL (0.0-1.3); Monocytes % 13.3 %; Neutrophils # 6.3 K/mcL (1.6-8.9); Platelet Count 328 K/mcL (140-400); Red Blood Count 3.31 M/mcL (3.82-4.97); Red Cell Distribution Width 14.6 % (11.5-14.5); Segmented Neutrophils % 69.1 %; White Blood Count 9.1 K/mcL (4.3-11.1)
[2020-11-05 01:13] LABS: BUN/Creatinine Ratio 14 (6-26); Blood Urea Nitrogen 7 mg/dL (8-23); Calcium 8.5 mg/dL (8.6-10.3); Carbon Dioxide 28 mEq/L (23-29); Chloride 104 mEq/L (98-107); Chol/HDL Ratio 4.8 (0-4.9); Cholesterol 120 mg/dL (< 200); Glucose 112 mg/dL (70-105); HDL Cholesterol 25 mg/dL (40-59); LDL Cholesterol,Calculated 79 mg/dL (< 100); Magnesium 1.8 mg/dL (1.6-2.6); Osmolality,Calculated 287 (280-300); Potassium 3.8 mEq/L (3.5-5.1); Sodium 139 mEq/L (136-145); Triglycerides 79 mg/dL (< 150); eGFR For African Americans > 60 (> 60); eGFR For Non-African Americans > 60 (> 60)
[2020-11-05] MEDS ORDERED: Acetaminophen IV 500 MG/50 ML BAG IVPB ONE (01:29)
[2020-11-05] MEDS: Nicotine 21 MG PATCH.TD24 TD SCH (08:06)
[2020-11-05] MEDS: Mirtazapine 15 MG TABLET PO SCH (20:59)
[2020-11-06 02:09] LABS: Hematocrit 26.2 % (35.3-44.9); Hemoglobin 7.8 g/dL (11.5-15.4); Mean Corpuscular HGB Conc 29.8 g/dL (31.6-35.5); Mean Corpuscular Hemoglobin 26.3 pg (28.0-33.3); Mean Corpuscular Volume 88.2 fL (83.0-100.0); Mean Platelet Volume 9.9 fL (9.4-12.4); Platelet Count 303 K/mcL (140-400); Red Blood Count 2.97 M/mcL (3.82-4.97); Red Cell Distribution Width 14.6 % (11.5-14.5); White Blood Count 8.9 K/mcL (4.3-11.1)
[2020-11-06 02:29] LABS: BUN/Creatinine Ratio 15 (6-26); Blood Urea Nitrogen 8 mg/dL (8-23); Calcium 8.2 mg/dL (8.6-10.3); Carbon Dioxide 29 mEq/L (23-29); Chloride 104 mEq/L (98-107); Glucose 99 mg/dL (70-105); Osmolality,Calculated 284 (280-300); Potassium 3.6 mEq/L (3.5-5.1); Sodium 138 mEq/L (136-145); eGFR For African Americans > 60 (> 60); eGFR For Non-African Americans > 60 (> 60)
[2020-11-06] MEDS: *HR* HYDROcodone/Acet 5/325 mg TABLET PO PRN ×2 (06:22→14:56)
[2020-11-06] MEDS: Multivit/Ca/Min/Fe/FA 1 TAB TABLET PO SCH (08:29)
[2020-11-06] MEDS: Nicotine 21 MG PATCH.TD24 TD SCH (08:30)
[2020-11-06] MEDS: Heparin 25,000UNIT/250ML 1/2NS 25,000 UNIT/250 ML IV.SOLN IVC SCH ×2 (09:10→10:23)
[2020-11-06] MEDS: *HR* Heparin 5,000 UNIT/ML VIAL IVP PRN ×2 (09:18→17:12)
[2020-11-06] MEDS: Mirtazapine 15 MG TABLET PO SCH (21:41)
[2020-11-07] MEDS: *HR* HYDROcodone/Acet 5/325 mg TABLET PO PRN (01:11)
[2020-11-07 01:15] LABS: Hematocrit 27.5 % (35.3-44.9); Hemoglobin 8.2 g/dL (11.5-15.4); Mean Corpuscular HGB Conc 29.8 g/dL (31.6-35.5); Mean Corpuscular Volume 87.3 fL (83.0-100.0); Mean Platelet Volume 9.7 fL (9.4-12.4); Platelet Count 363 K/mcL (140-400); Red Blood Count 3.15 M/mcL (3.82-4.97); Red Cell Distribution Width 14.9 % (11.5-14.5); White Blood Count 8.7 K/mcL (4.3-11.1)
[2020-11-07 07:02] VITALS: BP 110/61
[2020-11-07] MEDS ORDERED: *HR* Rivaroxaban 15 MG TABLET PO ONE (08:02)
[2020-11-07] MEDS: Multivit/Ca/Min/Fe/FA 1 TAB TABLET PO SCH (08:57)
[2020-11-07] MEDS: Nicotine 21 MG PATCH.TD24 TD SCH (08:58)
== END 2020-11-07 10:10 | disposition home health service (06) ==
LOC: EMEROOARM 13:16 → 3ANU 13:16 → SUATTDRO 18:52 → 3ANU 20:19
PROVIDERS: ADMIT Internal Medicine; ATTEND Internal Medicine

== ENCOUNTER 2020-11-29 10:34 | Observation (INO) ==
[2020-11-29] MEDS ORDERED: Isovue-370 500 ML BOTTLE IVP ONE (10:57)
[2020-11-29] MEDS ORDERED: Ipratropium/Albuterol Neb 3 ML IH ONE (11:03)
[2020-11-29 11:25] LABS: Basophils # 0.1 K/mcL (0.0-0.2); Basophils % 0.8 %; Eosinophils % 0.5 %; Hematocrit 34.8 % (35.3-44.9); Hemoglobin 10.4 g/dL (11.5-15.4); Immature Granulocytes % 0.5 % (0-4); Lymphocytes # 1.1 K/mcL (0.6-4.6); Lymphocytes % 17.8 %; Mean Corpuscular HGB Conc 29.9 g/dL (31.6-35.5); Mean Corpuscular Hemoglobin 25.2 pg (28.0-33.3); Mean Corpuscular Volume 84.3 fL (83.0-100.0); Mean Platelet Volume 9.4 fL (9.4-12.4); Monocytes # 0.6 K/mcL (0.0-1.3); Monocytes % 8.7 %; Neutrophils # 4.6 K/mcL (1.6-8.9); Platelet Count 309 K/mcL (140-400); Red Blood Count 4.13 M/mcL (3.82-4.97); Red Cell Distribution Width 16.8 % (11.5-14.5); Segmented Neutrophils % 71.7 %; White Blood Count 6.4 K/mcL (4.3-11.1)
[2020-11-29 11:45] LABS: BUN/Creatinine Ratio 8 (6-26); Blood Urea Nitrogen 5 mg/dL (8-23); Calcium 9.3 mg/dL (8.6-10.3); Carbon Dioxide 24 mEq/L (23-29); Chloride 103 mEq/L (98-107); Glucose 107 mg/dL (70-105); Osmolality,Calculated 292 (280-300); Potassium 3.5 mEq/L (3.5-5.1); Sodium 142 mEq/L (136-145); Troponin I < 0.03 ng/mL (< 0.04); eGFR For African Americans > 60 (> 60); eGFR For Non-African Americans > 60 (> 60)
[2020-11-29] MEDS ORDERED: Azithromycin 500 MG in D5% in Water 250 ML IVPB ONE (13:57)
[2020-11-29] MEDS ORDERED: methylPREDNISolone 125 MG/2 ML VIAL IVP ONE (13:57)
[2020-11-29] MEDS ORDERED: Acetaminophen 325 MG TABLET PO PRN (14:31)
[2020-11-29] MEDS ORDERED: Ondansetron ODT 4 MG TAB.RAPDIS SL PRN (14:31)
[2020-11-29] MEDS ORDERED: Naloxone 0.4 MG/ML INJ IVP PRN (14:31)
[2020-11-29] MEDS ORDERED: *HR* HYDROcodone/Acet 5/325 mg TABLET PO PRN (14:38)
[2020-11-29] MEDS: Ipratropium/Albuterol Neb 3 ML IH SCH ×3 (15:52→23:36)
[2020-11-29 16:59] LABS: Prothrombin Time 11.9 Seconds (9.4-12.1)
[2020-11-29] MEDS: MethylPREDNISolone 40 MG/ML VIAL IVP SCH (17:26)
[2020-11-29] MEDS: *HR* Rivaroxaban 15 MG TABLET PO SCH (17:26)
[2020-11-29] MEDS: ALPRAZolam 0.25 MG TABLET PO PRN (18:38)
[2020-11-30] MEDS: Ipratropium/Albuterol Neb 3 ML IH SCH ×2 (03:49→07:38)
[2020-11-30] MEDS: MethylPREDNISolone 40 MG/ML VIAL IVP SCH (06:31)
[2020-11-30 07:39] LABS: Hematocrit 34.1 % (35.3-44.9); Mean Corpuscular HGB Conc 29.3 g/dL (31.6-35.5); Mean Corpuscular Hemoglobin 25.4 pg (28.0-33.3); Mean Corpuscular Volume 86.5 fL (83.0-100.0); Platelet Count 331 K/mcL (140-400); Red Blood Count 3.94 M/mcL (3.82-4.97); Red Cell Distribution Width 17.1 % (11.5-14.5)
[2020-11-30 07:45] LABS: White Blood Count 10.2 K/mcL (4.3-11.1)
[2020-11-30 08:01] LABS: BUN/Creatinine Ratio 13 (6-26); Blood Urea Nitrogen 7 mg/dL (8-23); Calcium 9.6 mg/dL (8.6-10.3); Carbon Dioxide 25 mEq/L (23-29); Chloride 106 mEq/L (98-107); Glucose 138 mg/dL (70-105); Osmolality,Calculated 290 (280-300); Potassium 3.7 mEq/L (3.5-5.1); Sodium 140 mEq/L (136-145); eGFR For African Americans > 60 (> 60); eGFR For Non-African Americans > 60 (> 60)
[2020-11-30] MEDS: Azithromycin 500 MG in 0.9 % Sodium Chloride 250 ML IVPB SCH (09:05)
[2020-11-30] MEDS: predniSONE 20 MG TABLET PO SCH (09:05)
[2020-11-30] MEDS: *HR* Rivaroxaban 15 MG TABLET PO SCH ×2 (09:05→16:32)
[2020-11-30] MEDS: Aspirin Enteric Coated 81 MG Tablet PO SCH (09:05)
[2020-11-30] MEDS: Ipratropium Neb 0.5 MG NEBULIZER IH SCH ×3 (10:36→21:39)
[2020-11-30] MEDS: Levalbuterol Neb 0.63 MG/3 ML IH SCH ×3 (10:36→21:39)
[2020-11-30] MEDS: ALPRAZolam 0.25 MG TABLET PO PRN ×3 (11:58→21:16)
[2020-11-30] MEDS: Metoprolol XL (24 HR) Succ 25 MG TAB.ER.24H PO SCH ×2 (19:56→21:16)
[2020-12-01 01:58] LABS: Basophils % 0.1 %; Hematocrit 31.4 % (35.3-44.9); Hemoglobin 9.6 g/dL (11.5-15.4); Immature Granulocytes % 0.6 % (0-4); Lymphocytes # 1.6 K/mcL (0.6-4.6); Lymphocytes % 11.6 %; Mean Corpuscular HGB Conc 30.6 g/dL (31.6-35.5); Mean Corpuscular Hemoglobin 26.2 pg (28.0-33.3); Mean Corpuscular Volume 85.6 fL (83.0-100.0); Monocytes # 1.5 K/mcL (0.0-1.3); Monocytes % 10.5 %; Neutrophils # 10.7 K/mcL (1.6-8.9); Platelet Count 314 K/mcL (140-400); Red Blood Count 3.67 M/mcL (3.82-4.97); Red Cell Distribution Width 17.2 % (11.5-14.5); Segmented Neutrophils % 77.2 %; White Blood Count 13.8 K/mcL (4.3-11.1)
[2020-12-01 02:25] LABS: BUN/Creatinine Ratio 23 (6-26); Blood Urea Nitrogen 14 mg/dL (8-23); Calcium 8.9 mg/dL (8.6-10.3); Carbon Dioxide 25 mEq/L (23-29); Chloride 105 mEq/L (98-107); Glucose 109 mg/dL (70-105); Magnesium 2.1 mg/dL (1.6-2.6); Osmolality,Calculated 299 (280-300); Potassium 3.9 mEq/L (3.5-5.1); Sodium 144 mEq/L (136-145); eGFR For African Americans > 60 (> 60); eGFR For Non-African Americans > 60 (> 60)
[2020-12-01] MEDS: Levalbuterol Neb 0.63 MG/3 ML IH SCH (03:43)
[2020-12-01] MEDS: Ipratropium Neb 0.5 MG NEBULIZER IH SCH (03:43)
[2020-12-01 07:11] VITALS: BP 121/69
[2020-12-01] MEDS: Azithromycin 500 MG in 0.9 % Sodium Chloride 250 ML IVPB SCH (07:37)
[2020-12-01] MEDS: *HR* Rivaroxaban 15 MG TABLET PO SCH (07:44)
[2020-12-01] MEDS: Metoprolol XL (24 HR) Succ 25 MG TAB.ER.24H PO SCH (07:44)
[2020-12-01] MEDS: Aspirin Enteric Coated 81 MG Tablet PO SCH (07:44)
[2020-12-01] MEDS: predniSONE 20 MG TABLET PO SCH (07:44)
== END 2020-12-01 09:46 | disposition home health service (06) ==
LOC: EMEROOARM 10:34 → 3ANU 10:34 → SUATTDRO 14:22 → 3ANU 15:22 → 3BNU 11-30 21:58
PROVIDERS: ADMIT Internal Medicine; ATTEND Pharmacist

== ENCOUNTER 2021-10-29 20:30 | Observation (INO) ==
[2021-10-29 21:35] LABS: Basophils # 0.1 K/mcL (0.0-0.2); Eosinophils # 0.3 K/mcL (0.0-0.6); Eosinophils % 3.5 %; Hematocrit 34.8 % (35.3-44.9); Hemoglobin 11.1 g/dL (11.5-15.4); Immature Granulocytes % 0.9 % (0-4); Lymphocytes # 1.7 K/mcL (0.6-4.6); Lymphocytes % 18.9 %; Mean Corpuscular HGB Conc 31.9 g/dL (31.6-35.5); Mean Corpuscular Hemoglobin 28.1 pg (28.0-33.3); Mean Corpuscular Volume 88.1 fL (83.0-100.0); Mean Platelet Volume 10.3 fL (9.4-12.4); Monocytes % 11.2 %; Neutrophils # 5.7 K/mcL (1.6-8.9); Platelet Count 326 K/mcL (140-400); Red Blood Count 3.95 M/mcL (3.82-4.97); Red Cell Distribution Width 14.4 % (11.5-14.5); Segmented Neutrophils % 64.5 %; White Blood Count 8.9 K/mcL (4.3-11.1)
[2021-10-29 21:41] LABS: INR 1.3; Prothrombin Time 14.4 Seconds (9.4-12.1)
[2021-10-29 21:44] LABS: Activated Partial Thrombo Time 32.4 Seconds (26.0-36.0)
[2021-10-29 21:47] LABS: Alanine Aminotransferase 4 Units/L (7-52); Albumin 3.5 g/dL (3.5-5.7); Albumin/Globulin Ratio 1.3 (1.1-2.2); Alkaline Phosphatase 52 Units/L (34-104); Aspartate Amino Transferase 11 Units/L (13-39); BUN/Creatinine Ratio 20 (6-26); Bilirubin,Total 0.3 mg/dL (0.3-1.0); Blood Urea Nitrogen 12 mg/dL (8-23); Carbon Dioxide 27 mEq/L (23-29); Chloride 104 mEq/L (98-107); Globulin 2.8 g/dL (2.4-3.5); Glucose 89 mg/dL (70-105); Osmolality,Calculated 285 (280-300); Potassium 3.9 mEq/L (3.5-5.1); Sodium 138 mEq/L (136-145); Total Protein 6.3 g/dL (6.4-8.9); eGFR For African Americans > 60 (> 60); eGFR For Non-African Americans > 60 (> 60)
[2021-10-30] MEDS ORDERED: Naloxone 0.4 MG/ML INJ IVP PRN (00:09)
[2021-10-30] MEDS ORDERED: Ondansetron 4 MG/2 ML VIAL IVP PRN (00:09)
[2021-10-30] MEDS ORDERED: 0.9 % Sodium Chloride 1,000 ML IVC SCH (00:15)
[2021-10-30] MEDS: Pantoprazole 40 MG VIAL IVP SCH ×2 (05:06→17:00)
[2021-10-30 06:13] LABS: Hematocrit 36.1 % (35.3-44.9); Hemoglobin 11.5 g/dL (11.5-15.4); Mean Corpuscular HGB Conc 31.9 g/dL (31.6-35.5); Mean Corpuscular Volume 87.8 fL (83.0-100.0); Mean Platelet Volume 9.9 fL (9.4-12.4); Platelet Count 311 K/mcL (140-400); Red Blood Count 4.11 M/mcL (3.82-4.97); Red Cell Distribution Width 14.3 % (11.5-14.5); White Blood Count 8.2 K/mcL (4.3-11.1)
[2021-10-30 07:30] LABS: BUN/Creatinine Ratio 17 (6-26); Blood Urea Nitrogen 9 mg/dL (8-23); Calcium 8.9 mg/dL (8.6-10.3); Carbon Dioxide 24 mEq/L (23-29); Chloride 105 mEq/L (98-107); Glucose 89 mg/dL (70-105); Osmolality,Calculated 284 (280-300); Potassium 3.9 mEq/L (3.5-5.1); Sodium 138 mEq/L (136-145); eGFR For African Americans > 60 (> 60); eGFR For Non-African Americans > 60 (> 60)
[2021-10-30] MEDS ORDERED: *HR* LORazepam 0.5 MG TABLET PO ONE (16:40)
[2021-10-31] MEDS ORDERED: Acetaminophen 325 MG TABLET PO ONE (00:03)
[2021-10-31] MEDS ORDERED: *HR* HYDROcodone/Acet 5/325 mg TABLET PO ONE (00:24)
[2021-10-31] MEDS ORDERED: Mirtazapine 15 MG TABLET PO ONE (00:24)
[2021-10-31] MEDS ORDERED: *HR* HYDROcodone/Acet 5/325 mg TABLET PO PRN (07:45)
[2021-10-31] MEDS ORDERED: *HR* LORazepam 0.5 MG TABLET PO PRN (07:45)
[2021-10-31] MEDS: Metoprolol XL (24 HR) Succ 25 MG TAB.ER.24H PO SCH ×2 (07:54→09:16)
[2021-10-31] MEDS: Pantoprazole 40 MG VIAL IVP SCH ×2 (08:37→16:36)
[2021-10-31] MEDS ORDERED: Lidocaine -MPF 2% 2 ML VIAL ONE (14:38)
[2021-10-31] MEDS: Melatonin 3 MG TABLET PO SCH ×2 (22:48→22:50)
[2021-10-31] MEDS: Mirtazapine 15 MG TABLET PO SCH ×2 (22:48→22:50)
[2021-11-01 04:35] LABS: Hematocrit 37.6 % (35.3-44.9); Hemoglobin 11.9 g/dL (11.5-15.4)
[2021-11-01] MEDS: Pantoprazole 40 MG VIAL IVP SCH (05:16)
[2021-11-01 06:53] VITALS: BP 137/74; PULSE 83; TEMP 97.7; O2SAT 95
[2021-11-01] MEDS: Metoprolol XL (24 HR) Succ 25 MG TAB.ER.24H PO SCH (08:09)
== END 2021-11-01 10:13 | disposition home health service (06) ==
LOC: 3BNU 20:30 → EMEROOARM 20:30 → SUATTDRO 23:28 → 3BNU 23:55
PROVIDERS: ADMIT Internal Medicine; ATTEND Internal Medicine